=== PATIENT | male | born 1955 | race Caucasian/White ===

== ENCOUNTER 2019-08-17 11:10 | Day surgery (SDC) | payer BC ==
[2019-08-17] VITALS (11 sets, daily range): BP systolic 104–131; BP diastolic 51–69
[~2019-08-17] VITALS: Ht 175.3 cm; Wt 72.2 kg
[2019-08-17] MEDS ORDERED: normal saline 1000ml 1,000 ML IV PRN (11:45)
[2019-08-17 12:00] LABS: BASOPHILS # (AUTO) 0.1 X10'3 (0-0.2); EOSINOPHILS # (AUTO) 0.1 X10'3 (0-0.9); HEMOGLOBIN 13.3 g/dl (14.0-17.9); LYMPHOCYTES # (AUTO) 1.3 X10'3 (1.1-4.8); MEAN PLATELET VOLUME 9.6 FL (7.4-10.4)
[2019-08-17 12:01] LABS: BASOPHILS % (AUTO) 1.1 % (0-1); EOSINOPHILS % (AUTO) 0.6 % (0-6); HEMATOCRIT 38.5 % (42.0-52.0); MEAN CORPUSCULAR HEMOGLOBIN 31.3 PG (27.0-31.0); MEAN CORPUSCULAR HGB CONC 34.6 g/dL (33.0-36.5); MEAN CORPUSCULAR VOLUME 90.4 FL (78-98); MONOCYTES # (AUTO) 1.2 X10'3 (0-0.9); MONOCYTES % (AUTO) 11.5 % (2-12); NEUTROPHILS # (AUTO) 7.9 X10'3 (1.8-7.7); NEUTROPHILS % (AUTO) 74.8 % (42-75); PLATELET COUNT 464 X10'3 (140-440); RED BLOOD COUNT 4.26 X10'6 (4.70-6.10); RED CELL DISTRIBUTION WIDTH 13.2 % (11.5-14.5); WHITE BLOOD COUNT 10.6 X10'3 (4.5-11.0)
[2019-08-17] MEDS ORDERED: AMO250L PO (12:10)
[2019-08-17] MEDS ORDERED: SIMV-42 PO (12:10)
[2019-08-17] MEDS ORDERED: LISI40TA4 PO (12:10)
[2019-08-17] MEDS ORDERED: midazolam 2 mg/2 ml injection IV PRN (12:45)
[2019-08-17] MEDS ORDERED: fentaNYL/PF 50MCG/1 ML 2ML syringe IV PRN (12:45)
[2019-08-17] MEDS ORDERED: LIDOcaine 1%/PF 5ML 10 MG/ML VIAL SQ ONE (12:45)
[2019-08-17] MEDS ORDERED: midazolam 2 mg/2 ml injection ONE (12:57)
[2019-08-17] MEDS ORDERED: fentaNYL/PF 50MCG/1 ML 2ML syringe ONE (12:57)
[2019-08-17] MEDS ORDERED: HYDROcodone/acetaminophen 5mg/325mg tablet PO PRN (13:40)
== END 2019-08-17 16:00 | disposition home or self-care (01) ==
LOC: SSTAY O 11:10
PROVIDERS: ATTEND Radiology Diagnostic Radiology
DX: C78.7 Secondary malignant neoplasm of liver and intrahepatic bile duct (principal); C19 Malignant neoplasm of rectosigmoid junction; K57.30 Diverticulosis of large intestine without perforation or abscess without bleeding
CPT/HCPCS: 36415; 47000; 77012; 85025; 85610; 99152; 99153; J2250; J3010

== ENCOUNTER 2019-08-28 10:53 | Day surgery (SDC) | payer BC, MEDICAID ==
[~2019-08-28] VITALS: Ht 175.3 cm; Wt 70.5 kg
[~2019-08-28 10:53] MED LIST: AMO250L PO; LISI40TA4 PO; SIMV-42 PO
[2019-08-28] MEDS ORDERED: normal saline 1000ml 1,000 ML IV SCH (11:15)
[2019-08-28 11:45] VITALS: BP 99/54
[2019-08-28] MEDS ORDERED: heparin sodium, porcine/PF 100unit/ml 5ML syringe ONE (12:22)
[2019-08-28] MEDS ORDERED: LIDOcaine 1%/PF 5ML 10 MG/ML VIAL ONE (12:22)
[2019-08-28] MEDS ORDERED: midazolam 2 mg/2 ml injection ONE (12:22)
[2019-08-28] MEDS ORDERED: fentaNYL/PF 50MCG/1 ML 2ML syringe ONE (12:23)
[2019-08-28 13:25] VITALS: BP 109/61
[2019-08-28 13:40] VITALS: BP 103/57
[2019-08-28 13:55] VITALS: BP 108/65
[2019-08-28 14:10] VITALS: BP 109/60
[2019-08-28 14:25] VITALS: BP 101/60
== END 2019-08-28 14:35 | disposition home or self-care (01) ==
LOC: SSTAY O 10:53
PROVIDERS: ATTEND Radiology Diagnostic Radiology
DX: C20 Malignant neoplasm of rectum (principal); Z79.899 Other long term (current) drug therapy
CPT/HCPCS: 36561; 76937; 77001; 99152; 99153; C1788; C1894; J1642; J2250; J3010